=== PATIENT | male | born 1940 | race Caucasian/White ===

== ENCOUNTER → 2016-07-09 | Outpatient (CLI) | payer OTHER ==
--- NOTE | 2016-07-09 12:27 | DIAGNOSTIC IMAGING REPORT ---
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 There are no calcification suspicious for renal calculi. There is a 33 mm lytic lesion within the right proximal femur. This has nonaggressive imaging characteristics with a sclerotic margin. This remains unchanged from a CT scan dated 12/11/2015 IMPRESSION: 1. Stable 33 mm lytic focus within the proximal right femur with nonaggressive imaging characteristics 2. No evidence of pathologic bowel dilatation. No renal calculi identified. Electronically signed by: Elia Guzmán M.D. 07/09/2016 12:26 PM Dictated Date/Time: 07/09/2016 12:24 PM
== END | disposition home or self-care (01) ==
LOC: C.RAD 11:35
PROVIDERS: ATTEND Urology
DX: N40.1 Benign prostatic hyperplasia with lower urinary tract symptoms (principal)

== ENCOUNTER → 2016-07-19 | Outpatient (CLI) | payer OTHER | END | disposition home or self-care (01) | LOC: C.LAB 14:01 | PROVIDERS: ATTEND Nurse Practitioner Family | DX: R30.0 Dysuria (principal); N20.0 Calculus of kidney ==

== ENCOUNTER → 2017-07-21 | Outpatient (CLI) | payer OTHER | END | disposition home or self-care (01) | LOC: C.LABSPEC 17:47 | PROVIDERS: ATTEND Urology | DX: N20.0 Calculus of kidney (principal); N39.0 Urinary tract infection, site not specified ==

== ENCOUNTER → 2017-08-02 | Outpatient (CLI) | payer OTHER | END | disposition home or self-care (01) | LOC: C.LAB 12:10 | PROVIDERS: ATTEND Urology | DX: N39.0 Urinary tract infection, site not specified (principal) ==

== ENCOUNTER → 2017-09-09 | Outpatient (CLI) | payer OTHER ==
--- NOTE | 2017-09-09 09:04 | DIAGNOSTIC IMAGING REPORT ---
[facility] CLINICAL HISTORY: Kidney stones. Gross hematuria. COMPARISON STUDY: CT of the abdomen and pelvis December 11, 2015 and [facility] July 09, 2016. FINDINGS: Bowel gas pattern is normal. Pelvic calcifications reflect phleboliths. No urinary calculi are identified. IMPRESSION: 1. No urinary calculi identified. 2. No evidence for a bowel obstruction. Electronically signed by: Jerry Lang M.D. 09/09/2017 9:02 AM Dictated Date/Time: 09/09/2017 9:00 AM
== END | disposition home or self-care (01) ==
LOC: C.RAD 08:00
PROVIDERS: ATTEND Nurse Practitioner Adult Health
DX: N20.0 Calculus of kidney (principal); R31.0 Gross hematuria